=== PATIENT | female | born 1985 | race Caucasian/White ===

== ENCOUNTER 2017-06-17 17:43 | Emergency (ER) | payer MEDICAID ==
[~2017-06-17] VITALS: Ht 147.3 cm; Wt 49.0 kg
[~2017-06-17 17:43] MED LIST: ADDE20 PO; LEXA20TA PO
[2017-06-17 17:45] VITALS: BP 130/96; PULSE 86; RESP 14; TEMP 97.7; O2SAT 97
[2017-06-17 17:57] VITALS: BP 102/58; PULSE 75; RESP 19; TEMP 98
[2017-06-17] MEDS ORDERED: TRAZ50TA12 PO (18:31)
[2017-06-17] MEDS ORDERED: BUSP10TA PO (18:31)
[2017-06-17] MEDS ORDERED: ADDE10 PO (18:31)
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
== END 2017-06-17 23:14 | disposition home or self-care (01) ==
LOC: NEPC 17:43
DX: T76.21XA Adult sexual abuse, suspected, initial encounter (principal)
CPT/HCPCS: 99281